=== PATIENT | male | born 2000 | race Caucasian/White ===

== ENCOUNTER → 2018-06-09 | Outpatient (CLI) | payer BC, OTHER ==
[2018-06-09 08:20] LABS: HEMOGLOBIN 14.1 gm/dL (14.0-18.0); MCH 29.8 pg (26.0-34.0); MCHC 33.7 g/dL (28.0-37.0); MCV 88.6 fL (80.0-100.0); RBC 4.74 mil/uL (4.50-6.00); RDW 13.6 % (10.5-14.5); WBC 7.2 thou/uL (4.0-11.0)
[2018-06-09 08:26] LABS: POTASSIUM 3.9 mmol/L (3.5-5.1)
[2018-06-09 08:29] LABS: PROTIME 10.4 Seconds (9.3-11.4)
== END ==
LOC: ULTRA 07:49
PROVIDERS: Family Medicine
DX: R59.9 Enlarged lymph nodes, unspecified (principal)

== ENCOUNTER → 2019-05-01 | Outpatient (CLI) | payer BC, OTHER | LOC: RAD 14:56 | DX: J02.9 Acute pharyngitis, unspecified (principal) ==